=== PATIENT | female | born 1995 | race Two or more races ===

== ENCOUNTER 2019-09-16 16:15 | Outpatient (CLI) | payer OTHER ==
[2019-09-16 17:07] LABS: APPEARANCE,URINE CLEAR; BILIRUBIN,URINE NEGATIVE (NEGATIVE); COLOR,URINE YELLOW; GLUCOSE, URINE NEGATIVE (NEGATIVE); KETONES,URINE NEGATIVE (NEGATIVE); LEUKOCYTE ESTERASE,URINE NEGATIVE (NEGATIVE); NITRITE,URINE NEGATIVE (NEGATIVE); PROTEIN,URINE 30 mg/dL (NEGATIVE)
[2019-09-16 17:18] LABS: URINE AMPHETAMINES SCREEN NEGATIVE; URINE BARBITURATES SCREEN NEGATIVE; URINE BENZODIAZEPINES SCREEN NEGATIVE; URINE COCAINE SCREEN NEGATIVE; URINE MARIJUANA (THC) SCREEN NEGATIVE; URINE METHADONE SCREEN NEGATIVE; URINE PHENCYCLIDINE SCREEN NEGATIVE
[2019-09-16 17:33] LABS: ALBUMIN 3.2 g/dL (3.5-5.0); ALKALINE PHOSPHATASE 153 U/L (38-126); ANION GAP 9 (5-19); ASPARTATE AMINO TRANSFERASE 295 U/L (14-36); BILIRUBIN,DIRECT 0.5 mg/dL (0.0-0.4); BILIRUBIN,TOTAL 0.6 mg/dL (0.2-1.3); BLOOD UREA NITROGEN 10 mg/dL (7-20); CALCIUM 8.9 mg/dL (8.4-10.2); CARBON DIOXIDE 21 mmol/L (22-30); CHLORIDE 103 mmol/L (98-107); GLUCOSE 108 mg/dL (75-110); POTASSIUM 4.4 mmol/L (3.6-5.0); TOTAL PROTEIN 6.8 g/dL (6.3-8.2)
[2019-09-16] MEDS ORDERED: BETAMET ACET/BETAMET NA INJ 6 MG/1 ML ONE (18:35)
[2019-09-16 19:24] LABS: ABSOLUTE EOSINOPHILS # (AUTO) 0.1 10^3/uL (0.0-0.6); ABSOLUTE LYMPHOCYTES (AUTO) 1.8 10^3/uL (0.5-4.7); ABSOLUTE MONOCYTES (AUTO) 0.5 10^3/uL (0.1-1.4); ABSOLUTE NEUT (AUTO) 6.3 10^3/uL (1.7-8.2); BASOPHILS % (AUTO) 0.4 % (0-2); EOSINOPHILS % (AUTO) 0.8 % (0-6); HEMATOCRIT 34.4 % (36.0-47.0); HEMOGLOBIN 11.6 g/dL (12.0-15.5); LYMPHOCYTES % (AUTO) 20.3 % (13-45); MEAN CORPUSCULAR HEMOGLOBIN 27.9 pg (27.0-33.4); MEAN CORPUSCULAR HGB CONC 33.6 g/dL (32.0-36.0); MEAN CORPUSCULAR VOLUME 83 fl (80-97); MONOCYTES % (AUTO) 6.1 % (3-13); PLATELET COUNT 390 10^3/uL (150-450); RED BLOOD COUNT 4.15 10^6/uL (3.72-5.28); RED CELL DISTRIBUTION WIDTH 14.1 % (11.5-14.0); SEGMENTED NEUTROPHILS % (AUTO) 72.4 % (42-78); TOTAL CELLS COUNTED % (AUTO) 100 %; WHITE BLOOD COUNT 8.6 10^3/uL (4.0-10.5)
[2019-09-16 19:55] LABS: URIC ACID 3.2 mg/dL (2.5-6.2)
[2019-09-16] MEDS ORDERED: URSODIOL 300 MG CAPSULE PO SCH (22:00)
[2019-09-17] MEDS ORDERED: BETAMET ACET/BETAMET NA INJ 6 MG/1 ML IM ONE (18:15)
[2019-09-18 08:39] LABS: HEPATITS B SURFACE ANTIGEN Negative (Negative)
== END 2019-09-16 21:37 | disposition home or self-care (01) ==
LOC: LC 16:15 → UNDOADMIN 21:17 → LR 21:17 → LC 21:37
PROVIDERS: ATTEND Obstetrics & Gynecology
PROC: 4A1HXCZ Monitoring of Products of Conception, Cardiac Rate, External Approach (ICD-10-PCS; principal; 2019-09-16)
DX: O36.8130 Decreased fetal movements, third trimester, not applicable or unspecified (principal); Z3A.36 36 weeks gestation of pregnancy
CPT/HCPCS: 59025; 86900; 86901; 36415; 86850; 82947; 83615; 84550; 85025; 86592; 80053; 81001; 87340; 80307; 82239; J3490; J0702

== ENCOUNTER 2019-09-17 07:54 | Inpatient (IN) | payer OTHER ==
--- NOTE | 2019-09-17 08:10 | Non Stress Test Report ---
Non Stress Test Datetime Report Generated by CPN: 09/17/2019 08:10 DEMOGRAPHIC EGA NST: 36.3 INDICATION Indication for Study (NST) Other: labor check MONITORING Monitor Explained: Monitor Explained; Test Explained; Patient Verbalized Understanding Time on Monitor: 09/16/2019 16:36 Time off Monitor: 09/17/2019 21:29 NST Duration: 1733 NST INTERVENTIONS NST Interventions: PO Hydration; IV Fluids BABY A: [id number] BABY A Movement : Present Contraction Frequency : irregular FHR Baseline : 150 Accelerations : 15X15 Decelerations : None Variability : Moderate 6-25bpm NST Review: Meets Criteria for Reactive NST NST Review and Verified By : nichol bowman NST Results: Reactive NST REPORT Report Trigger: Send Report
[2019-09-17] MEDS ORDERED: RINGERS SOLUTION,LACTATED 1,000 ML IV PRN (08:12)
[2019-09-17] MEDS ORDERED: RINGERS SOLUTION,LACTATED 1,000 ML IV ONE (08:12)
[2019-09-17] MEDS ORDERED: BETAMET ACET/BETAMET NA INJ 6 MG/1 ML IM ONE (08:20)
[2019-09-17] MEDS ORDERED: BETAMET ACET/BETAMET NA INJ 6 MG/1 ML ONE (08:42)
[2019-09-17 09:06] LABS: APPEARANCE,URINE SLIGHTLY-CLOUDY; BILIRUBIN,URINE NEGATIVE (NEGATIVE); COLOR,URINE AMBER; GLUCOSE, URINE NEGATIVE (NEGATIVE); KETONES,URINE 20 mg/dL (NEGATIVE); PROTEIN,URINE 100 mg/dL (NEGATIVE); URINE SPECIFIC GRAVITY 1.028; UROBILINOGEN,URINE NEGATIVE mg/dL (<2.0)
[2019-09-17 09:13] LABS: UR PRO/CREAT RATIO RESULT 0.2 mg/mg (0.0-0.2); URINE CREATININE 227.7 mg/dL (16-327); URINE PROTEIN 42.4 mg/dL (<12)
[2019-09-17 09:23] LABS: URINE AMPHETAMINES SCREEN NEGATIVE; URINE BARBITURATES SCREEN NEGATIVE; URINE BENZODIAZEPINES SCREEN NEGATIVE; URINE COCAINE SCREEN NEGATIVE; URINE MARIJUANA (THC) SCREEN NEGATIVE; URINE METHADONE SCREEN NEGATIVE; URINE PHENCYCLIDINE SCREEN NEGATIVE
--- NOTE | 2019-09-17 09:44 | RADIOLOGY REPORT (SQ) ---
EXAM DESCRIPTION: U/S OB LIMITED IMAGES COMPLETED DATE/TIME: 09/17/2019 9:11 am REASON FOR STUDY: weight, presentation, fluid COMPARISON: None. TECHNIQUE: Limited transabdominal grayscale ultrasound for evaluation of specific requested obstetri riky parameters. LIMITATIONS: None. FINDINGS: CERVICAL LENGTH: 3 cm Closed. ARNOLDO: Total ARNOLDO 15 cm, LVP 5.4 cm . FHR: 132 beats per minute. PRESENTATION: Cephalic. PLACENTA: Anterior, grade 2 ANATOMY: Not assessed OTHER: Estimated weight 3035 g (52nd percentile). Estimated gestational age by multiple measurements 36 weeks 6 days. Estimated due date 10/09/2019 IMPRESSION: LIMITED OBSTETRICAL ULTRASOUND WITH MEASURED PARAMETERS DELINEATED ABOVE. Trimester of : Third trimester - 28 weeks to delivery. TECHNICAL DOCUMENTATION: JOB ID: [id number] [employer]- All Rights Reserved Reading location - IP/workstation name: [id number]
--- NOTE | 2019-09-17 09:52 | PDOC PROGRESS REPORT ---
Subjective Progress Note for:: 09/16/19 Subjective:: LATE ENTRY NOTE FOR at 2038 24 yo at 36.3 wks EGA by LMP and we were able to get an US from 18.3 wks EGA showing her to be 37 wks by that US. SHe comes today d/t decreased movement and itching for 2 wks . States itching is all over her body including hands and feet. Reports only sleeping 2 hours nightly d/t itching. SHe reports no complications this besides anemia and has taken PNV plus daily PO Iron for this. She is seen by [facility] in [place] until 3 wks ago but then moved and has not established with [facility] yet . G1 was 3 yrs ago at 39-40 wks by after IOL . Reports no complications other than it took 32 hours before she delivered. Baby weighted 7 lb 9 oz NO PMH or PSH Does not smoke or use tobacco/illicit drugs Reason For Visit: Physical Exam - Physical Exam Vital Signs: Intake & Output 09/16/19 09/17/19 09/18/19 06:59 06:59 06:59 Weight 66.4 kg General appearance: PRESENT: no acute distress, cooperative Mouth exam: PRESENT: dry mucosa Cardiovascular exam: PRESENT: RRR, +S1, +S2 GI/Abdominal exam: PRESENT: normal bowel sounds, soft Extremities exam: PRESENT: full ROM. ABSENT: calf tenderness, clubbing, pedal edema Neurological exam: PRESENT: alert, oriented to person, oriented to place, oriented to time Skin exam: PRESENT: intact, warm - excoriations near ankles. Result Laboratory Results: 09/17/19 08:23 Urine Color USHA Urine Appearance SLIGHTLY-CLOUDY Urine pH 6.0 Ur Specific [place] 1.028 Urine Protein 100 H Urine Glucose (UA) NEGATIVE Urine Ketones 20 H Urine Blood SMALL H Urine RBC (Auto) 38 Assessment & Plan - Diagnosis (1) Cholestasis during in third trimester Is this a current diagnosis for this admission?: Yes Plan: Discussed with patient that her liver enzymes are elvated at 295 and 497. Bile acids sent but these are a send out lab and take 4 days per lab. Fatty liver of is in differental but she has normal glucoses which makes this unlikely. She has normal blood pressures and PIH labs incluing PLatelets, uric acid, LDH, creatinine are all normal making preeclampsia unlikely. She has normal reflexes and lungs/heart normal. Her urine is usha color. No hx of IVD use, Hepatitis testing at beginning of normal. Will repeat. D/c medication use and has not taken NSAIDs or tylenol. Does not drink alcohol Discussed with her that she is 36.3 ( 37.1 wks by 18 wk US done in [place]) and ACOG recommendation are that she be delivered between 36-37 wks for dx of cholestasis of which I am diagnosing her with. Case discussed by phone with MFM, who agreed with this diagnosis and recommended steroids and delivery. Recommended delivery by IOL to the patient and she is in favor but states she has to get arrangements at home made for 3 year old. She wants to leave and get this done this evening and return in am FOr her induction. SHe did get one dose BMZ this evnening and we could repeat dose tomorrow. After steroids, will plan IOL. Plan antibiotics as GBS status not known. NST in triage was Category 1 and patient now feeling movements. Actigall 300mg TID started with first dose this evening. Kick counts and precautions given. - Time Time Spent with patient: 15-24 minutes
[2019-09-17] MEDS ORDERED: PENICILLIN G POTASSIUM 5,000,000 UNIT in DEXTROSE 5%-WATER 100 ML IV ONE (10:00)
[2019-09-17 10:15] LABS: CHLAM PCR NOT DETECTED (NOT DETECT)
[2019-09-17] MEDS ORDERED: OXYTOCIN/NORMAL SALINE 20 UNIT/1,000 ML RTUINJ IV PRN (10:15)
[2019-09-17] MEDS ORDERED: OXYTOCIN/NORMAL SALINE 20 UNIT/1,000 ML RTUINJ ONE (10:16)
[2019-09-17] MEDS ORDERED: MISOPROSTOL 0.2 MG TABLET ONE (10:16)
[2019-09-17] MEDS ORDERED: OXYTOCIN 10 UNIT/ML VIAL ONE (10:16)
[2019-09-17] MEDS ORDERED: LIDOCAINE 1% INJ-PF (10 MG/ML) 30 ML SDV ONE (10:16)
[2019-09-17] MEDS ORDERED: PENICILLIN G-K 5 MILLION UNIT VIAL ONE ×2 (10:16→22:41)
[2019-09-17 10:24] LABS: ABSOLUTE MONOCYTES (AUTO) 0.5 10^3/uL (0.1-1.4); ABSOLUTE NEUT (AUTO) 9.6 10^3/uL (1.7-8.2); BASOPHILS % (AUTO) 0.1 % (0-2); HEMATOCRIT 33.5 % (36.0-47.0); HEMOGLOBIN 11.5 g/dL (12.0-15.5); LYMPHOCYTES % (AUTO) 9.2 % (13-45); MEAN CORPUSCULAR HEMOGLOBIN 28.3 pg (27.0-33.4); MEAN CORPUSCULAR HGB CONC 34.2 g/dL (32.0-36.0); MEAN CORPUSCULAR VOLUME 83 fl (80-97); MONOCYTES % (AUTO) 4.4 % (3-13); PLATELET COUNT 401 10^3/uL (150-450); RED BLOOD COUNT 4.05 10^6/uL (3.72-5.28); RED CELL DISTRIBUTION WIDTH 13.6 % (11.5-14.0); SEGMENTED NEUTROPHILS % (AUTO) 86.3 % (42-78); TOTAL CELLS COUNTED % (AUTO) 100 %; WHITE BLOOD COUNT 11.1 10^3/uL (4.0-10.5)
[2019-09-17 10:40] LABS: INTERNATIONAL RATION (INR) 0.97; PROTHROMBIN TIME 12.9 SEC (11.4-15.4)
[2019-09-17 10:41] LABS: FIBRINOGEN 630 mg/dL (209-497); PARTIAL THROMBOPLASTIN TIME 25.6 SEC (23.5-35.8)
[2019-09-17 10:45] LABS: ALBUMIN 3.4 g/dL (3.5-5.0); ALKALINE PHOSPHATASE 160 U/L (38-126); AMYLASE 72 U/L (30-110); ANION GAP 11 (5-19); ASPARTATE AMINO TRANSFERASE 580 U/L (14-36); BILIRUBIN,DIRECT 0.2 mg/dL (0.0-0.4); BILIRUBIN,TOTAL 0.7 mg/dL (0.2-1.3); BLOOD UREA NITROGEN 9 mg/dL (7-20); CALCIUM 8.7 mg/dL (8.4-10.2); CARBON DIOXIDE 21 mmol/L (22-30); CHLORIDE 102 mmol/L (98-107); GLUCOSE 88 mg/dL (75-110); POTASSIUM 4.1 mmol/L (3.6-5.0); TOTAL PROTEIN 6.8 g/dL (6.3-8.2)
--- NOTE | 2019-09-17 10:47 | Warning Signs in Babies ---
VOD Warning Signs Datetime Report Generated by [facility]: 09/17/2019 10:46 VOD#608 -Warning Signs in Babies: Viewed with Parent(s)/Family (09/17/2019 10:46:Pete Sahu RN)
--- NOTE | 2019-09-17 11:43 | Admission Physical ---
Datetime Report Generated by CPN: 09/17/2019 11:43 CURRENT ADMISSION Chief Complaint: Scheduled Induction of Labor Indication for Induction: Other Indication for Induction- Other: Cholestasis of Admit Impression : Term, Intrauterine ; No Active Labor; Intact Membranes; Induction of Labor Admit Plan: Admit to Unit; Initiate Labor Induction Protocol ALLERGIES Medication Allergies: No Medication Allergies: No Known Allergies (09/17/2019) Latex: No Latex Allergies Food Allergies: Mushrooms Environmental Allergies: None OBSTETRICAL HISTORY EDC: 10/11/2019 00:00 : 2 Para: 1 Term: 1 : 0 SAB: 0 IAB: 0 Ectopic: 0 Livin Cesareans: 0 VBACs: 0 Multiple Births: 0 Gestational Diabetes: No Rh Sensitization: No Incompetent Cervix: No LAZARO: No Infertility: No ART Treatment: No Uterine Anomaly: No IUGR: No Hx Previous C/S: No Macrosomia: No Hx Loss/Stillborn: No PIH: No Hx : No Placenta Previa/Abruption: No Depression/PP Depression: No PTL/PROM: No Post Hemorrhage: No Current Procedures: Ultrasound Obstetrical History Comments: G1- 06/06/2016, vaginal, full term G2-Current SEE RECORDS Alcohol: No Marijuana : No Cocaine: No Other Illicit Drugs: No Cigarettes: Never Smoker. 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 Surgery: No Heart Disease: No Hosp/Surgery: Yes Autoimmune Disorder: No Anesthetic Complications: No Kidney Disease: No Abnormal Pap Smear: No Neuro/Epilepsy: No Psychiatric Disorders: No Other Medical Diseases: No Hepatitis/Liver Disease: No Significant Family History: No Varicosities/Phlebitis: No Trauma/Violence : No Thyroid Dysfunction: No INFECTIOUS HISTORY Gonorrhea: No Genital Herpes: No Chlamydia: No Tuberculosis: No Syphilis: No HIV/AIDS Exposure: No Rash or Viral Illness: No HPV: No PHYSICAL EXAM General: Normal HEENT: Normal Neurologic: Normal Thyroid: Deferred Heart: Normal Lungs: Deferred Breast: Normal Back: Normal Abdomen: Normal Genitourinary Exam: Normal Extremities: Normal DTRs: Normal Pelvic Type: Adequate Vital Signs: Reviewed VAGINAL EXAM Dilatation: 1 Effacement: 25 Station: -3 Contraction Comments: q 2-3 MEMBRANES Membranes: Intact FETUS A EGA: 36.4 Monitoring: External US FHR- Baseline: 140 Variability: Moderate 6-25bpm Accelerations: 15X15 Decelerations: None FHR Category: Category I Estimated Weight (gm): 3035 Presentation: Vertex Admit Comment: 24yo at 36+4ega by known LMP of 01/05/2020 giving ANDREW of 10/07/2019 and this is c/w with US on 05/09/2020 giving 18+3ega and ANDREW 10/11/2019. US today EFW of 3035g and ANDREW of 10/09/2019 which is c/w both US. On US at 18wks US there was a complete 2.2cm cyst - will need f/u US at 6-8wks pp. She came in for decreased movement yesterday and noted to procider 2-3wks of itching. She reports that she told her SYSTEMS INTEGRATION ENGINEER when she saw them as an outpatient and they told her it was normal symptoms. LFTs elevated yesterday and are worse today - coags ordered. G1 was after long IOL due to prdromal labor. G1 was 7#9oz and no complications. She was counseled last evening due to elevated LFTS and pruritis and c/w Intrahepatic Cholestasis of - unfortunately bile acids will not be back for a couple of days. However, due to significant retal morbidity and mortality associated with ICP recommendations are for delivery now _ Dr. Zaman spoke with [facility] who agreed with recommendations. Reviewed recommendations and will proceed with IOL with cooks catheter. Cooks placed without difficulty. On lab and history review there is no other cause of elevated LFTs. R/B/A reviewed and Steroids given. IOL consents reviewed and signed. PLANS FOR LABOR AND DELIVERY Labor and Delivery: None Pain Management: Epidural Feeding Preference: Breast Benefit of Breast Feed Discussed: Yes Circumcision: Yes INFORMED CONSENT Informed Consent Obtained: Vaginal Delivery; Induction of Labor; Risks, Benefits and Alternatives Discussed Signature: with User ID: [email or web address]
[2019-09-17] MEDS: URSODIOL 300 MG CAPSULE PO SCH ×2 (14:23→18:10)
[2019-09-17] MEDS: PENICILLIN G POTASSIUM 2,500,000 UNIT in DEXTROSE 5%-WATER 50 ML IV SCH ×3 (14:24→23:40)
[2019-09-17] MEDS ORDERED: CARBOPROST TROMETHAMINE INJ 250 MCG/1 ML AMPULE ONE (18:08)
[2019-09-17 20:37] LABS: ABSOLUTE LYMPHOCYTES (AUTO) 1.2 10^3/uL (0.5-4.7); BASOPHILS % (AUTO) 0.1 % (0-2); HEMATOCRIT 31.2 % (36.0-47.0); HEMOGLOBIN 10.6 g/dL (12.0-15.5); LYMPHOCYTES % (AUTO) 7.3 % (13-45); MEAN CORPUSCULAR HEMOGLOBIN 27.9 pg (27.0-33.4); MEAN CORPUSCULAR HGB CONC 33.9 g/dL (32.0-36.0); MEAN CORPUSCULAR VOLUME 83 fl (80-97); MONOCYTES % (AUTO) 6.3 % (3-13); PLATELET COUNT 363 10^3/uL (150-450); RED BLOOD COUNT 3.78 10^6/uL (3.72-5.28); RED CELL DISTRIBUTION WIDTH 14.2 % (11.5-14.0); SEGMENTED NEUTROPHILS % (AUTO) 86.3 % (42-78); TOTAL CELLS COUNTED % (AUTO) 100 %; WHITE BLOOD COUNT 16.2 10^3/uL (4.0-10.5)
[2019-09-17 20:43] LABS: INTERNATIONAL RATION (INR) 0.98
[2019-09-17 20:44] LABS: FIBRINOGEN 518 mg/dL (209-497); PARTIAL THROMBOPLASTIN TIME 24.2 SEC (23.5-35.8)
[2019-09-17 21:04] LABS: ALBUMIN 3.1 g/dL (3.5-5.0); ALKALINE PHOSPHATASE 149 U/L (38-126); ANION GAP 9 (5-19); BILIRUBIN,DIRECT 0.2 mg/dL (0.0-0.4); BILIRUBIN,TOTAL 0.8 mg/dL (0.2-1.3); BLOOD UREA NITROGEN 7 mg/dL (7-20); CALCIUM 8.2 mg/dL (8.4-10.2); CARBON DIOXIDE 20 mmol/L (22-30); CHLORIDE 105 mmol/L (98-107); GLUCOSE 95 mg/dL (75-110); POTASSIUM 4.1 mmol/L (3.6-5.0); TOTAL PROTEIN 5.9 g/dL (6.3-8.2)
[2019-09-17 21:12] LABS: ASPARTATE AMINO TRANSFERASE 837 U/L (14-36)
[2019-09-17] MEDS ORDERED: FENTANYL CITRATE INJ/PF 100 MCG/2 ML AMPUL ONE (22:30)
[2019-09-17] MEDS ORDERED: PHENYLEPHRINE HCL INJ/PF 10 MG/1 ML SDV ONE (22:30)
[2019-09-17] MEDS ORDERED: EPHEDRINE SULFATE INJ 50 MG/1 ML AMPULE ONE (22:30)
[2019-09-17] MEDS ORDERED: BUPIVACAINE HCL 0.25 % INJ/PF (2.5 MG/1 ML) 30 ML VIAL ONE (22:31)
[2019-09-17] MEDS ORDERED: FENTANYL/BUPIVACAINE/NS/PF 300 MCG/150 ML RTUINJ EPI ONE (22:31)
[2019-09-17] MEDS ORDERED: ONDANSETRON HCL INJ/PF 4 MG/2 ML SDV IV ONE (22:43)
[2019-09-17] MEDS ORDERED: ONDANSETRON HCL INJ/PF 4 MG/2 ML SDV ONE (22:44)
[2019-09-17] MEDS ORDERED: METHYLERGONOVINE MALEATE INJ/PF 0.2 MG/1 ML AMPULE ONE (22:45)
[2019-09-18] MEDS ORDERED: METHYLERGONOVINE MALEATE INJ/PF 0.2 MG/1 ML AMPULE ONE ×2 (03:38→07:02)
[2019-09-18] MEDS: PENICILLIN G POTASSIUM 2,500,000 UNIT in DEXTROSE 5%-WATER 50 ML IV SCH ×3 (03:39→11:26)
[2019-09-18] MEDS ORDERED: DIPHENHYDRAMINE HCL 50 MG/ML VIAL ONE (05:27)
[2019-09-18] MEDS ORDERED: OXYTOCIN/NORMAL SALINE 20 UNIT/1,000 ML RTUINJ ONE (09:30)
[2019-09-18] MEDS ORDERED: PSEUDOEPHEDRINE HCL 30 MG TABLET PO PRN (09:32)
[2019-09-18] MEDS ORDERED: DIPH/PERTUSS(ACELL)/TETANUS VAC/PF 0.5 ML SYR (>=10YO) IM PRN (09:32)
[2019-09-18] MEDS ORDERED: PROMETHAZINE HCL 25 MG SUPP.RECT PR PRN (09:32)
[2019-09-18] MEDS ORDERED: OXYTOCIN/NORMAL SALINE 20 UNIT/1,000 ML RTUINJ IV PRN (09:32)
[2019-09-18] MEDS ORDERED: MEASLES,MUMPS&RUBELLA VACC/PF 0.5 ML VIAL SUBCUT PRN (09:32)
[2019-09-18] MEDS ORDERED: ZOLPIDEM TARTRATE 5 MG TABLET PO PRN (09:32)
[2019-09-18] MEDS ORDERED: ACETAMINOPHEN 325 MG TABLET PO PRN (09:32)
[2019-09-18] MEDS ORDERED: NA PHOS,M-B/NA PHOS,DI-BA (ADULT) 133 ML ENEMA PR PRN (09:32)
[2019-09-18] MEDS ORDERED: ACETAMINOPHEN WITH CODEINE #3 TABLET PO PRN ×2 (09:32)
[2019-09-18] MEDS ORDERED: DIBUCAINE 1% OINTMENT 28 GM TP PRN (09:32)
[2019-09-18] MEDS ORDERED: MISOPROSTOL 0.2 MG TABLET PR ONE (09:32)
[2019-09-18] MEDS ORDERED: PROMETHAZINE HCL 25 MG TABLET PO PRN (09:32)
[2019-09-18] MEDS ORDERED: BENZOCAINE/MENTHOL AEROSOL SPRAY 56 ML TOP PRN (09:32)
[2019-09-18] MEDS ORDERED: MAGNESIUM HYDROXIDE SUSP 30 ML UDCUP PO PRN (09:32)
[2019-09-18] MEDS ORDERED: DIPHENHYDRAMINE HCL 25 MG CAPSULE PO PRN (09:32)
[2019-09-18] MEDS ORDERED: PROMETHAZINE HCL INJ 25 MG/1 ML VIAL IV PRN (09:32)
[2019-09-18] MEDS ORDERED: GLYCERIN/WITCH HAZEL LEAF 1 EACH MED..WIPE TP PRN (09:32)
[2019-09-18] MEDS: URSODIOL 300 MG CAPSULE PO SCH ×3 (10:03→17:37)
[2019-09-18] MEDS ORDERED: BENZOCAINE/MENTHOL AEROSOL SPRAY 56 ML ONE (10:58)
--- NOTE | 2019-09-18 11:15 | Delivery Summary ---
Del Sum A-C Datetime Report Generated by CPN: 09/18/2019 11:14 DELIVERY PERSONNEL DELIVERY PERSONNEL: [id number] Delivery Doctor:: Edith Mora MD Labor and Delivery Nurse:: Pete Sahu RNplant equipment engineer Nurse:: Susan Davis RN Nursery Nurse:: Una Gallegos RN Press Secretary/HOG DRIVER: Divya Mcnair, IP TECHNOLOGY TRANSACTIONS ATTORNEY MATERNAL INFORMATION Delivery Anesthesia: Epidural Medications After Delivery: Pitocin Bolus-Please Comment; Cytotec 1000mcg Per Rectum/Vagina Meds After Delivery Comment: 20 Units/1000ml NSS Delivery QBL: 50 Maternal Complications: None Other Maternal Complications: Cholestasis of Provider Comments: VMI delivered in AMBAR presentation. No nuchal cord. Shoulders and body delivered without difficulty. Cord doubly clamped and cut and to maternal abdomen for NRP. Placenta delivered intact spontaneously. FF at U then atony - cytotec 1000mcg per rectum given. then FF at U again. Mother and baby stable upon provider leaving the room. LABOR SUMMARY EDC: 10/11/2019 00:00 No. Babies in Womb: 1 Attempted: No Labor Anesthesia: Epidural LABOR INFORMATION Reason for Induction: Other Reason for Induction- Other: Cholestasis of Onset of Labor: 09/18/2019 02:09 Complete Dilatation: 09/18/2019 08:46 Cervical Ripening Agents: Other Other Ripening Agents: cooks catheter Oxytocin: Induction Group B Beta Strep: unknown Antibiotics # of Doses: 5 Antibiotics Time of Last Dose: 718 Name of Antibiotic Given: Penicillin Steroids Given: Full Course MEMBRANES Membranes Rupture Method: Artificial Rupture of Membranes: 09/17/2019 16:29 Length of Rupture (hr): 16.90 Amniotic Fluid Color: Clear Amniotic Fluid Amount: Small Amniotic Fluid Odor: None STAGES OF LABOR Stage 1 hr: 6 Stage 1 min: 37 Stage 2 hr: 0 Stage 2 min: 37 Stage 3 hr: 0 Stage 3 min: 3 Total Time in Labor hr: 7 Total Time in Labor min: 17 VAGINAL DELIVERY Episiotomy: None Laceration #1: None Laceration Extension #1: N/A Laceration Repair: Not Applicable Sponge Count Correct: Yes Sharps Count Correct: Yes CSECTION DELIVERY Primary Indication: N/A Secondary Indication: N/A CSection Incidence: N/A Labor: N/A Elective: N/A CSection Incision: N/A BABY A INFORMATION Infant Delivery Date/Time: 09/18/2019 09:23 Method of Delivery: Vaginal Nurse Controlled Delivery: No Born in Route : No : N/A Forceps: N/A Vacuum Extraction: N/A Shoulder Dystocia : No PRESENTATION/POSITION BABY A Presentation: Cephalic Cephalic Presentation: Vertex Vertex Position: Left Occipital Anterior Breech Presentation: N/A PLACENTA INFORMATION BABY A Placenta Delivery Time : 09/18/2019 09:26 Placenta Method of Delivery: Spontaneous Placenta Status: Delivered SCORES BABY A Heart Rate 1 min: >100 bpm Resp Effort 1 min: Good Cry Reflex Irritability 1 min: Cough or Sneeze or Pulls Away Muscle Tone 1 min: Active Motion Color 1 min: Blue/Pale Resuscitation Effort 1 min: Tactile Stimulation SCORE 1 MIN: 8 Heart Rate 5 min: >100 bpm Resp Effort 5 min: Good Cry Reflex Irritability 5 min: Cough or Sneeze or Pulls Away Muscle Tone 5 min: Active Motion Color 5 min: Body [place], Extremities Blue Resuscitation Effort 5 min: Tactile Stimulation SCORE 5 MIN: 9 INFANT INFORMATION BABY A Gestational Age at Delivery: 36.5 Gestational Status: Late - 34- 36.6 Weeks Outcome : Liveborn Infant Condition : Stable Sex: Male IDENTIFICATION BABY A Infant Verification Date/Time: 09/18/2019 09:55 ID Band Number: [id number] Mother's Name Verified: Yes RN Verifying Infant: TMartin, RN MMobley, RN WEIGHT/LENGTH BABY A Infant Birthweight (gm): 3000 Weight (lb): 6 Weight (oz): 10 Length (in): 18.50 Length (cm): 46.99 CORD INFORMATION BABY A No. Cord Vessels: 3 Nuchal Cord : N/A Cord Blood Taken: Yes-For Eval (Mom's Blood Type - or O+) Suction: None ASSESSMENT BABY A Infant Complications: None Physical Findings at Delivery: Caput Succedaneum Respirations: Appears Normal Skin to Skin: Yes Skin to Skin Time (min): 30 Book Salesman/ALS Called : No Infant Care By: Marie Gallegos RN Transferred To: Remains with Mother BABY B INFORMATION : N/A SIGNATURES Signature: with User ID: [email or web address]
[2019-09-18] MEDS: FERROUS SULFATE 325 MG TABLET PO SCH ×2 (11:24→17:37)
[2019-09-18] MEDS: FAMOTIDINE 20 MG TABLET PO SCH ×2 (11:24→21:37)
[2019-09-18] MEDS: DOCUSATE SODIUM 100 MG CAPSULE PO SCH ×2 (11:24→17:37)
[2019-09-18] MEDS: SENNOSIDES/DOCUSATE 8.6-50 MG 1 EACH TABLET PO SCH (11:25)
[2019-09-18] MEDS: PRENATAL VITAMIN W DHA CAPSULE PO SCH (11:25)
[2019-09-18] MEDS: IBUPROFEN 800 MG TABLET PO SCH ×2 (14:00→21:33)
[2019-09-19] MEDS: IBUPROFEN 800 MG TABLET PO SCH ×3 (05:23→21:19)
[2019-09-19 07:20] LABS: HEMATOCRIT 29.9 % (36.0-47.0); HEMOGLOBIN 9.8 g/dL (12.0-15.5); MEAN CORPUSCULAR HEMOGLOBIN 27.8 pg (27.0-33.4); MEAN CORPUSCULAR VOLUME 84 fl (80-97); PLATELET COUNT 312 10^3/uL (150-450); RED BLOOD COUNT 3.54 10^6/uL (3.72-5.28); RED CELL DISTRIBUTION WIDTH 14.1 % (11.5-14.0)
[2019-09-19 07:42] LABS: ALBUMIN 2.4 g/dL (3.5-5.0); ALKALINE PHOSPHATASE 110 U/L (38-126); ASPARTATE AMINO TRANSFERASE 297 U/L (14-36); BILIRUBIN,TOTAL 0.3 mg/dL (0.2-1.3); BLOOD UREA NITROGEN 5 mg/dL (7-20); CALCIUM 8.1 mg/dL (8.4-10.2); GLUCOSE 96 mg/dL (75-110); POTASSIUM 3.8 mmol/L (3.6-5.0)
[2019-09-19 07:47] LABS: CARBON DIOXIDE 24 mmol/L (22-30); CHLORIDE 108 mmol/L (98-107)
[2019-09-19 07:49] LABS: ANION GAP 3 (5-19)
[2019-09-19] MEDS: FERROUS SULFATE 325 MG TABLET PO SCH ×2 (09:31→17:42)
[2019-09-19] MEDS: PRENATAL VITAMIN W DHA CAPSULE PO SCH (09:31)
[2019-09-19] MEDS: URSODIOL 300 MG CAPSULE PO SCH ×3 (09:32→17:42)
[2019-09-19] MEDS: SENNOSIDES/DOCUSATE 8.6-50 MG 1 EACH TABLET PO SCH (09:32)
[2019-09-19] MEDS: DOCUSATE SODIUM 100 MG CAPSULE PO SCH ×2 (09:32→17:42)
--- NOTE | 2019-09-19 09:38 | PDOC PROGRESS REPORT ---
Subjective-OB Progress Note for:: 09/19/19 Subjective: Doing well, no c/o, Physical Exam (OB) Vital Signs: Temp Pulse Resp BP Pulse Ox 97.7 F 56 L 16 110/63 98 09/19/19 07:15 09/19/19 07:15 09/19/19 07:15 09/19/19 07:15 09/19/19 07:15 Intake & Output 09/18/19 09/19/19 09/20/19 06:59 06:59 06:59 Intake Total 480 Balance 480 Weight 66.4 kg - PIH/Pre-Eclampsia DTR's: 1 + Clonus: Negative Headache: Absent Epigastric Pain: No Visual Changes: No - Lochia Lochia Amount: Scant < 10 ml Lochia Color: Rubra/Red - Abdomen Description: Soft Hernia Present: No Fundal Description: Firm, Midline Fundal Height: u/u - u/2 Objective-Diagnostic Laboratory: 09/19/19 06:51 09/19/19 06:51 09/17/19 09/19/19 09/19/19 09:28 06:51 06:51 WBC 14.0 H RBC 3.54 L Hgb 9.8 L Hct 29.9 L MCV 84 MCH 27.8 MCHC 33.0 RDW 14.1 H Plt Count 312 Sodium 135.1 L Potassium 3.8 Chloride 108 H Carbon Dioxide 24 Anion Gap 3 L BUN 5 L Creatinine 0.47 L Est GFR ( Amer) > 60 Glucose 96 Calcium 8.1 L Total Bilirubin 0.3 AST 297 H Alkaline Phosphatase 110 Total Protein 5.0 L Albumin 2.4 L Blood Type O POSITIVE Antibody Screen NEGATIVE Assessment and Plan(PN) - Assessment and Plan (1) Vaginal delivery Is this a current diagnosis for this admission?: Yes (2) Encounter for induction of labor Is this a current diagnosis for this admission?: Yes (3) Cholestasis during in third trimester Is this a current diagnosis for this admission?: Yes (4) Limited care Qualifiers: Trimester: unspecified trimester Qualified Code(s): O09.30 - Supervision of with insufficient care, unspecified trimester Is this a current diagnosis for this admission?: Yes (5) Elevated transaminase level Is this a current diagnosis for this admission?: Yes - Time Spent with Patient Time with patient: Less than 15 minutes Medications reviewed and adjusted accordingly: Yes - Disposition Anticipated Discharge: Home Within: within 24 hours
[2019-09-19 10:48] LABS: VARICELLA ZOSTER IGG AB >4000 index (Immune >16)
[2019-09-19] MEDS: FAMOTIDINE 20 MG TABLET PO SCH ×2 (10:52→21:19)
[2019-09-19 14:36] LABS: HEPATITIS C VIRUS AB <0.1 s/co ratio (0.0-0.9)
[2019-09-20] MEDS: IBUPROFEN 800 MG TABLET PO SCH (05:08)
--- NOTE | 2019-09-20 09:14 | PDOC DISCHARGE SUMMARY ---
Impression - Admit/DC Date/PCP Admission Date/Primary Care Provider: 09/17/19 07:54 PHYLICIA GODWIN MD Discharge Date: 09/20/19 - Discharge Diagnosis (1) Cholestasis during in third trimester Is this a current diagnosis for this admission?: Yes (2) Elevated transaminase level Is this a current diagnosis for this admission?: Yes (3) Encounter for induction of labor Is this a current diagnosis for this admission?: Yes (4) Limited care Is this a current diagnosis for this admission?: Yes (5) Vaginal delivery Is this a current diagnosis for this admission?: Yes - Additional Information Resuscitation Status: Full Code Discharge Diet: As Tolerated, Regular Discharge Activity: Activity As Tolerated Referrals: PHYLICIA GODWIN MD [Primary Care Provider] - Prescriptions: Ibuprofen [Motrin 800 mg Tablet] 800 mg PO Q8 #60 tablet Home Medications: Vit,Calc76/Iron/Folic [Prenatabs Rx Tablet] 1 tab PO DAILY 09/16/19 Ibuprofen [Motrin 800 mg Tablet] 800 mg PO Q8 #60 tablet 09/20/19 HPI Reason(s) for Admission: Induction of Labor Admission Note: cholestasis in Procedures: NST, Ultrasound Intrapartum Procedure(s): Spontaneous Vaginal Delivery Hospital Course Hospital Course: routine Results Laboratory Results: WBC 14.0 10^3/uL (4.0-10.5) H 09/19/19 06:51 RBC 3.54 10^6/uL (3.72-5.28) L 09/19/19 06:51 Hgb 9.8 g/dL (12.0-15.5) L 09/19/19 06:51 Hct 29.9 % (36.0-47.0) L 09/19/19 06:51 MCV 84 fl (80-97) 09/19/19 06:51 MCH 27.8 pg (27.0-33.4) 09/19/19 06:51 MCHC 33.0 g/dL (32.0-36.0) 09/19/19 06:51 RDW 14.1 % (11.5-14.0) H 09/19/19 06:51 Plt Count 312 10^3/uL (150-450) 09/19/19 06:51 Lymph % (Auto) 7.3 % (13-45) L 09/17/19 20:25 [place] % (Auto) 6.3 % (3-13) 09/17/19 20:25 Eos % (Auto) 0.0 % (0-6) 09/17/19 20:25 Baso % (Auto) 0.1 % (0-2) 09/17/19 20:25 Absolute Neuts (auto) 14.0 10^3/uL (1.7-8.2) H 09/17/19 20:25 Absolute Lymphs (auto) 1.2 10^3/uL (0.5-4.7) 09/17/19 20:25 Absolute Monos (auto) 1.0 10^3/uL (0.1-1.4) 09/17/19 20:25 Absolute Eos (auto) 0.0 10^3/uL (0.0-0.6) 09/17/19 20:25 Absolute Basos (auto) 0.0 10^3/uL (0.0-0.2) 09/17/19 20:25 Seg Neutrophils % 86.3 % (42-78) H 09/17/19 20:25 PT 13.0 SEC (11.4-15.4) 09/17/19 20:25 INR 0.98 09/17/19 20:25 APTT 24.2 SEC (23.5-35.8) 09/17/19 20:25 Fibrinogen 518 mg/dL (209-497) H 09/17/19 20:25 Sodium 135.1 mmol/L (137-145) L 09/19/19 06:51 Potassium 3.8 mmol/L (3.6-5.0) 09/19/19 06:51 Chloride 108 mmol/L (98-107) H 09/19/19 06:51 Carbon Dioxide 24 mmol/L (22-30) 09/19/19 06:51 Anion Gap 3 (5-19) L 09/19/19 06:51 BUN 5 mg/dL (7-20) L 09/19/19 06:51 Creatinine 0.47 mg/dL (0.52-1.25) L 09/19/19 06:51 Est GFR ( Amer) > 60 (>60) 09/19/19 06:51 Est GFR (MDRD) Non-Af > 60 (>60) 09/19/19 06:51 Glucose 96 mg/dL (75-110) 09/19/19 06:51 Hemoglobin A1c % 5.5 % (4.7-6.0) 09/17/19 09:28 Uric Acid 4.0 mg/dL (2.5-6.2) 09/17/19 09:28 Calcium 8.1 mg/dL (8.4-10.2) L 09/19/19 06:51 Total Bilirubin 0.3 mg/dL (0.2-1.3) 09/19/19 06:51 Direct Bilirubin 0.0 mg/dL (0.0-0.4) 09/19/19 06:51 Neonat Total Bilirubin Not Reportable 09/19/19 06:51 Neonat Direct Bilirubin Not Reportable 09/19/19 06:51 Neonat Indirect Bili Not Reportable 09/19/19 06:51 AST 297 U/L (14-36) H 09/19/19 06:51 ALT 567 U/L (<35) H 09/19/19 06:51 Alkaline Phosphatase 110 U/L (38-126) 09/19/19 06:51 Lactate Dehydrogenase 374 U/L (120-246) H 09/17/19 09:28 Total Protein 5.0 g/dL (6.3-8.2) L 09/19/19 06:51 Albumin 2.4 g/dL (3.5-5.0) L 09/19/19 06:51 Amylase 72 U/L (30-110) 09/17/19 09:28 Lipase 169.2 U/L (23-300) 09/17/19 09:28 TSH 3.58 uIU/mL (0.47-4.68) 09/17/19 09:28 Urine Color CARLENE 09/17/19 08:23 Urine Appearance SLIGHTLY-CLOUDY 09/17/19 08:23 Urine pH 6.0 (5.0-9.0) 09/17/19 08:23 Ur Specific [place] 1.028 09/17/19 08:23 Urine Protein 100 mg/dL (NEGATIVE) H 09/17/19 08:23 Urine Glucose (UA) NEGATIVE mg/dL (NEGATIVE) 09/17/19 08:23 Urine Ketones 20 mg/dL (NEGATIVE) H 09/17/19 08:23 Urine Blood SMALL (NEGATIVE) H 09/17/19 08:23 Urine Nitrite (Reflex) NEGATIVE (NEGATIVE) 09/17/19 08:23 Urine Bilirubin NEGATIVE (NEGATIVE) 09/17/19 08:23 Urine Urobilinogen NEGATIVE mg/dL (<2.0) 09/17/19 08:23 Leukocyte Esterase Rfl NEGATIVE (NEGATIVE) 09/17/19 08:23 Urine RBC (Auto) 38 /HPF 09/17/19 08:23 Urine Bacteria (Auto) TRACE /HPF 09/17/19 08:23 Urine WBC (Reflex) 2 /HPF 09/17/19 08:23 Squamous Epi Cells Auto 5 /HPF 09/17/19 08:23 Urine Mucus (Auto) MANY /LPF 09/17/19 08:23 Urine Creatinine 227.7 mg/dL (16-327) 09/17/19 08:23 Protein/Creatinin Ratio 0.2 mg/mg (0.0-0.2) 09/17/19 08:23 Urine Total Protein 42.4 mg/dL (<12) H 09/17/19 08:23 Urine Ascorbic Acid 40 (NEGATIVE) H 09/17/19 08:23 Urine Opiates Screen NEGATIVE 09/17/19 08:23 Urine Methadone Screen NEGATIVE 09/17/19 08:23 Ur Barbiturates Screen NEGATIVE 09/17/19 08:23 Ur Phencyclidine Scrn NEGATIVE 09/17/19 08:23 Ur Amphetamines Screen NEGATIVE 09/17/19 08:23 U Benzodiazepines Scrn NEGATIVE 09/17/19 08:23 Urine Cocaine Screen NEGATIVE 09/17/19 08:23 U Marijuana (THC) Screen NEGATIVE 09/17/19 08:23 Chlamydia DNA (PCR) NOT DETECTED (NOT DETECT) 09/17/19 08:23 Hepatitis C (ALEJANDRINA) <0.1 s/co ratio (0.0-0.9) 09/17/19 09:28 Hep C Verif Com 1 Comment (.) 09/17/19 09:28 HIV 1&2 Antibody NEGATIVE (NEGATIVE) 09/17/19 09:28 N.gonorrhoeae DNA (PCR) NOT DETECTED (NOT DETECT) 09/17/19 08:23 VZV IgG Antibody >4000 index (Immune >16) 09/17/19 09:28 Blood Type O POSITIVE 09/17/19 09:28 Antibody Screen NEGATIVE 09/17/19 09:28 Impressions: Obstetrics Ultrasound 09/17/19 00:00 IMPRESSION: LIMITED OBSTETRICAL ULTRASOUND WITH MEASURED PARAMETERS DELINEATED ABOVE. Trimester of : Third trimester - 28 weeks to delivery. Plan Plan of Treatment: d/c to home, f/up with [facility] in 4 wks Time Spent: Less than 30 Minutes
[2019-09-20 09:41] VITALS: BP 101/72
[2019-09-20] MEDS: SENNOSIDES/DOCUSATE 8.6-50 MG 1 EACH TABLET PO SCH (10:00)
[2019-09-20] MEDS: PRENATAL VITAMIN W DHA CAPSULE PO SCH (10:00)
[2019-09-20] MEDS: DOCUSATE SODIUM 100 MG CAPSULE PO SCH (10:01)
[2019-09-20] MEDS: URSODIOL 300 MG CAPSULE PO SCH (10:01)
[2019-09-20] MEDS: FERROUS SULFATE 325 MG TABLET PO SCH (10:01)
[2019-09-20] MEDS: FAMOTIDINE 20 MG TABLET PO SCH (10:02)
== END 2019-09-20 12:41 | disposition home or self-care (01) | DRG 805 ==
LOC: LR 07:54 → 2S 09-18 11:47
PROVIDERS: ADMIT Student in an Organized Health Care Education/Training Program; ATTEND Student in an Organized Health Care Education/Training Program
PROC: 10E0XZZ Delivery of Products of Conception, External Approach (ICD-10-PCS; principal; 2019-09-18)
PROC: 3E033VJ Introduction of Other Hormone into Peripheral Vein, Percutaneous Approach (ICD-10-PCS; 2019-09-18)
PROC: 10907ZC Drainage of Amniotic Fluid, Therapeutic from Products of Conception, Via Natural or Artificial Opening (ICD-10-PCS; 2019-09-18)
DX: O26.62 Liver and biliary tract disorders in childbirth (principal); K83.1 Obstruction of bile duct; Z37.0 Single live birth; O62.2 Other uterine inertia; Z3A.36 36 weeks gestation of pregnancy; Z91.018 Allergy to other foods; O36.8130 Decreased fetal movements, third trimester, not applicable or unspecified
CPT/HCPCS: 36415; 76815; 80053; 80307; 81001; 82150; 82570; 83036; 83615; 83690; 84156; 84443; 84550; 85025; 85027; 85384; 85610; 85730; 86701; 86787; 86803; 86804; 86850; 86900; 86901; 87070; 87081; 87491; 87591; 88307; 94760; 96372; J0702; J1200; J2210; J2370; J2405; J2540; J2590; J3010; J3490; J7060